=== PATIENT | female | born 1965 ===

== ENCOUNTER 2016-08-08 06:38 | Emergency (ER) | payer BC ==
--- NOTE | 2016-08-08 07:37 | ED PDOC ---
HPI: Abdomen Time Seen by Provider: 08/08/16 07:10 Chief Complaint (Nursing): Abdominal Pain Chief Complaint (Provider): Abdominal Pain History Per: Patient History/Exam Limitations: no limitations Onset/Duration Of Symptoms: Days Current Symptoms Are (Timing): Still Present Severity: Mild Location Of Pain/Discomfort: LLQ Quality Of Discomfort: "Pain" Associated Symptoms: denies: Fever, Nausea, Urinary Symptoms Exacerbating Factors: Movement, Deep Breaths Alleviating Factors: None Additional Complaint(s): Patient is a 51 year old female who presents to ED for evaluation of left side pain for several hours. Notes that pain is worsened with movement and deep breathing but remains fairly constant. Denies fever, nausea, vomiting, diarrhea , headache, chest pain, SOB, urinary changes, constipation or blood in stool. States she initially thought this was secondary to pending menstrual but pain feels different. Past Medical History Reviewed: Historical Data, Nursing Documentation, Vital Signs Vital Signs: Last Vital Signs Temp 98 F 08/08/16 07:00 Pulse 86 08/08/16 07:00 Resp 18 08/08/16 07:00 BP 112/70 08/08/16 07:00 Pulse Ox 100 08/08/16 07:44 - Medical History PMH: Anxiety, Depression - Surgical History Surgical History: Cholecystectomy - Family History Family History: States: Hypertension, Other - Living Arrangements Living Arrangements: With Family - Social History Current smoker - smoking cessation education provided: No Alcohol: None Drugs: Denies - Home Medications Home Medications: Ambulatory Orders Medication Instructions Recorded Ciprofloxacin/Ciprofloxa HCl 500 mg PO BID #20 ter 08/08/16 [Ciprofloxacin] Naproxen [Naprosyn] 500 mg PO BID PRN #20 tablet 08/08/16 metroNIDAZOLE [Flagyl] 500 mg PO TID #30 tab 08/08/16 - Allergies Allergies/Adverse Reactions: Allergies Allergy/AdvReac Type Severity Reaction Status Date / Time Shellfish Allergy SHORTNESS Uncoded 08/08/16 09:23 OF BREATH Review of Systems ROS Statement: Except As Marked, All Systems Reviewed And Found Negative Constitutional: Negative for: Fever, Chills Cardiovascular: Negative for: Chest Pain Respiratory: Negative for: Shortness of Breath Gastrointestinal: Positive for: Abdominal Pain. Negative for: Nausea, Vomiting , Diarrhea, Constipation Genitourinary Female: Negative for: Dysuria, Frequency, Hematuria Musculoskeletal: Negative for: Back Pain Neurological: Negative for: Headache Physical Exam - Reviewed Nursing Documentation Reviewed: Yes Vital Signs Reviewed: Yes - Physical Exam Appears: Positive for: Non-toxic, No Acute Distress Skin: Positive for: Normal Color, Warm Eye Exam: Positive for: Normal appearance Neck: Positive for: Normal, Painless ROM Cardiovascular/Chest: Positive for: Regular Rate, Rhythm. Negative for: Murmur Respiratory: Positive for: Normal Breath Sounds. Negative for: Respiratory Distress Gastrointestinal/Abdominal: Positive for: Soft, Tenderness (LLQ). Negative for : Guarding, Rebound Back: Positive for: Normal Inspection. Negative for: L CVA Tenderness, R CVA Tenderness Extremity: Positive for: Normal ROM Neurologic/Psych: Positive for: Alert, Oriented - Laboratory Results Result Diagrams: 08/08/16 07:50 08/08/16 07:50 - ECG O2 Sat by Pulse Oximetry: 100 (RA) Pulse Ox Interpretation: Normal Medical Decision Making Medical Decision Making: Time: 719 Initial impression: Abdominal pain Initial plan: -- CT-abdomen -- CMP -- Urine preg -- Urine dip -- CBC -- Pelvic U/S Time: 741 Urine dip (-) leukocytes, blood Urine preg: Neg Scribe Attestation: Documented by Manisha Angel acting as a scribe for Yanci Banegas MD MD Scribe Attestation: All medical record entries made by the Scribe were at my direction and personally dictated by me. I have reviewed the chart and agree that the record accurately reflects my personal performance of the history, physical exam, medical decision making, and the department course for this patient. I have also personally directed, reviewed, and agree with the discharge instructions and disposition. Disposition - Clinical Impression Clinical Impression: Diverticulitis - Patient ED Disposition Is Patient to be Admitted: No Doctor Will See Patient In The: Office Counseled Patient/Family Regarding: Diagnosis, Need For Followup, Rx Given - Disposition Referrals: Stanley Dias MD [IM] - Disposition: Routine/Home Disposition Time: 12:33 Condition: STABLE Prescriptions: Ciprofloxacin/Ciprofloxa HCl [Ciprofloxacin] 500 mg PO BID #20 ter metroNIDAZOLE [Flagyl] 500 mg PO TID #30 tab Naproxen [Naprosyn] 500 mg PO BID PRN #20 tablet PRN Reason: Pain, Moderate (4-7) Forms: [facility] (Swiss) - POA Present On Arrival: None
[2016-08-08 08:07] LABS: BASO % 0.2 % (0.0-2.0); HEMATOCRIT 36.6 % (34.0-47.0); LYMPH # 1.2 K/uL (1.0-4.3); LYMPH % 10.2 % (20.0-40.0); MEAN CELL VOLUME 86.6 fl (81.0-99.0); MEAN CORPUSCULAR HEMOGLOBIN 28.8 pg (27.0-31.0); MEAN CORPUSCULAR HGB CONC 33.2 g/dL (33.0-37.0); MEAN PLATELET VOLUME 9.4 fl (7.2-11.7); MONO # 1.4 K/uL (0.0-0.8); MONO % 11.7 % (0.0-10.0); NEUT # 9.3 K/uL (1.8-7.0); NEUT % 77.9 % (50.0-75.0); RED CELL DISTRIBUTION WIDTH 14.4 % (11.5-14.5)
[2016-08-08 08:21] LABS: ALB/GLOB RATIO 1.3 (1.0-2.1); ALKALINE PHOSPHATASE 77 U/L (38-126); ALT/SGPT 24 U/L (9-52); AST/SGOT 19 U/L (14-36); BILIRUBIN,TOTAL 0.6 mg/dl (0.2-1.3); BLOOD UREA NITROGEN 10 mg/dl (7-17); CALCIUM 9.3 mg/dL (8.4-10.2); CARBON DIOXIDE 23 mmol/L (22-30); CHLORIDE 107 mmol/L (98-107); GFR AFRICAN-AMERICAN > 60; GLUCOSE,RANDOM 98 mg/dL (65-105); POTASSIUM 4.3 MMOL/L (3.6-5.0); SODIUM 140 mmol/l (132-148); TOTAL PROTEIN 7.6 G/DL (6.3-8.2)
[2016-08-08] MEDS ORDERED: Iohexol 300 100 ML IJ ONE (10:26)
[2016-08-08] MEDS ORDERED: Sodium Chloride 0.9% 100 ML ONE (10:27)
--- NOTE | 2016-08-08 11:37 | CT ---
PROCEDURE: CT Abdomen and Pelvis with contrast HISTORY: LLQ pain COMPARISON: None. TECHNIQUE: Contrast dose: 100 cc of Omnipaque 300 Radiation dose: Total exam DLP = 03/07/2000 mGy-cm. This CT exam was performed using one or more of the following dose reduction techniques: Automated exposure control, adjustment of the mA and/or kV according to patient size, and/or use of iterative reconstruction technique. FINDINGS: LOWER THORAX: Unremarkable. LIVER: Unremarkable. No gross lesion or ductal dilatation. GALLBLADDER AND BILE DUCTS: Status post cholecystectomy and gastric sleeve surgery. PANCREAS: Unremarkable. No gross lesion or ductal dilatation. SPLEEN: Unremarkable. ADRENALS: Unremarkable. No mass. KIDNEYS AND URETERS: Unremarkable. No hydronephrosis. No solid mass. VASCULATURE: Unremarkable. No aortic aneurysm. BOWEL: Colonic diverticulosis is noted with extensive acute diverticulitis involving the sigmoid colon/descending colon junction. No evidence of gross pneumoperitoneum or or abscess. APPENDIX: Normal appendix. PERITONEUM: Unremarkable. No free fluid. No free air. LYMPH NODES: Unremarkable. No enlarged lymph nodes. BLADDER: Unremarkable. REPRODUCTIVE: Unremarkable. BONES: No acute fracture. OTHER FINDINGS: None. IMPRESSION: Moderate to severe acute diverticulitis of the descending colon/sigmoid colon junction. No gross abscess or pneumoperitoneum.
[2016-08-08 13:21] VITALS: BP 103/58; PULSE 87; RESP 16; TEMP 98.3; O2SAT 98
--- NOTE | 2016-08-08 14:20 | US ---
HISTORY: left pelvic pain. Duration of symptoms: 3 days. LMP 07/13/2016 COMPARISON: August 08, 2016. CT abdomen and pelvis. Summary of findings on the comparison examination: Moderate to severe acute diverticulitis of the descending colon/ sigmoid colon junction. TECHNIQUE: Transabdominal only. Real-time technique with 2D, duplex and color Doppler FINDINGS: UTERUS: Measures 5.6 x 4.8 x 10.7 cm. Normal in size and appearance. No fibroid or other mass lesion seen. ENDOMETRIUM: Measures 7.1 mm in diameter. Unremarkable. CERVIX: No cervical abnormality identified. RIGHT OVARY: Measures 2 x 1.9 cm. No solid mass. Normal flow. LEFT OVARY: Measures 2.5 x 3.1 cm. No solid mass. Normal flow. FREE FLUID: No significant free fluid noted. OTHER FINDINGS: None. IMPRESSION: Unremarkable pelvic ultrasound.
== END 2016-08-08 12:51 | disposition home or self-care (01) ==
LOC: H.ER 06:38
DX: K57.90 Diverticulosis of intestine, part unspecified, without perforation or abscess without bleeding (principal)
CPT/HCPCS: 74177; 76856; 80053; 81025; 85025; 99285; Q9967